=== PATIENT | female | born 1975 | race Hispanic/Latino ===

== ENCOUNTER 2018-01-02 09:02 | Outpatient (CLI) | payer BC ==
--- NOTE | 2018-01-02 16:33 | ULT ---
RENAL SONOGRAM 01/02/18 HISTORY: Right flank pain. FINDINGS: The right kidney measures 9.8 cm x 4.4 cm with the left kidney measuring 10.1 cm x 6.1 cm. There is a 1.1 cm anechoic structure seen in the inferior pole left kidney with characteristics sugge sting a tiny left renal cyst. No solid renal mass, hydronephrosis, or renal calculus is seen involvin g the left kidney. There is a small echogenic focus seen within the mid portion right kidney which does not demonstrate posterior shadowing and could potentially represent prominent vessel. There is an irregular echogenic area measuring 1.9 cm within the mid portion of the right kidney with a central area of decreased ec hogenicity and this may be related to a tiny renal cyst with adjacent parapelvic fat although this is asymmetric compared to the remainder of the kidney but this area is difficult to further evaluate on this exam. There is no hydronephrosis or definite renal calculus seen on the right. No perinephric f luid collection is seen on the right. The urinary bladder is incompletely distended but grossly normal in appearance. The ureteral jets are seen bilaterally, although a weaker ureteral jet is present on the right. IMPRESSION: 1. Irregular echogenic focus within the mid portion of the right kidney which is felt to most li goran be related to renal sinus fat with central area of decreased echogenicity in this region probabl y related to either prominence of the medullary pyramid or small cyst. Followup renal sonogram is sug gested. This is not thought to represent a renal mass. 2. No evidence of hydronephrosis. 3. Left renal cyst. POS: [facility]
== END 2018-01-02 09:03 | disposition home or self-care (01) ==
LOC: BICULT 09:02
PROVIDERS: ATTEND Internal Medicine
DX: R10.9 Unspecified abdominal pain (principal); N28.1 Cyst of kidney, acquired; R93.421 Abnormal radiologic findings on diagnostic imaging of right kidney
CPT/HCPCS: 76770

== ENCOUNTER 2018-01-22 15:16 | Outpatient (CLI) | payer BC | END 2018-01-22 15:17 | disposition home or self-care (01) | LOC: BICMAMMO 15:16 | PROVIDERS: ATTEND Internal Medicine | DX: Z12.31 Encounter for screening mammogram for malignant neoplasm of breast (principal); R92.1 Mammographic calcification found on diagnostic imaging of breast | CPT/HCPCS: 77063; 77067 ==